=== PATIENT | female | born 1950 | race Caucasian/White ===

== ENCOUNTER 2024-12-19 05:23 | Emergency (ER) | payer OTHER ==
[~2024-12-19] VITALS: Ht 161.9 cm; Wt 99.8 kg
[2024-12-19 05:58] VITALS: PULSE 97; RESP 18; TEMP 98.9; O2SAT 97
[2024-12-19] MEDS ORDERED: VENTOLIN HFA18 GM INH (06:21)
[2024-12-19] MEDS ORDERED: ONDANSETRON ODT4 MG PO (06:35)
== END 2024-12-19 06:32 | disposition home or self-care (01) ==
LOC: ER 05:27
DX: R05.9 Cough, unspecified (principal); U07.1 COVID-19; I10 Essential (primary) hypertension; E11.9 Type 2 diabetes mellitus without complications; E78.5 Hyperlipidemia, unspecified; I48.91 Unspecified atrial fibrillation; M19.09 Primary osteoarthritis, other specified site; I25.2 Old myocardial infarction; Z86.73 Personal history of transient ischemic attack (TIA), and cerebral infarction without residual deficits; Z96.653 Presence of artificial knee joint, bilateral
CPT/HCPCS: 99284